=== PATIENT | male | born 1975 | race Caucasian/White ===

== ENCOUNTER → 2020-11-21 | Day surgery (SDC) | payer BC ==
[~2020-11-21] MED LIST: ALBU2.5V8 IH; BACL10TA PO; BUDE10.7 IH; ESCITALOPRAM OX10 MG PO; FLUT1BLS3 IH; IBUP800T19 PO; METH-559 PO
[2020-11-21 08:28] VITALS: BP 134/91
== END | disposition home or self-care (01) ==
LOC: SURG 08:20
PROVIDERS: ATTEND Anesthesiology
DX: M54.12 Radiculopathy, cervical region (principal); G89.29 Other chronic pain; M47.816 Spondylosis without myelopathy or radiculopathy, lumbar region; M50.30 Other cervical disc degeneration, unspecified cervical region; M51.36 Other intervertebral disc degeneration, lumbar region; M51.34 Other intervertebral disc degeneration, thoracic region; J45.909 Unspecified asthma, uncomplicated; M19.90 Unspecified osteoarthritis, unspecified site; Z98.890 Other specified postprocedural states; Z87.442 Personal history of urinary calculi; Z79.899 Other long term (current) drug therapy; Z88.8 Allergy status to other drugs, medicaments and biological substances
CPT/HCPCS: 99204; G0463

== ENCOUNTER 2021-09-11 08:18 | Emergency (ER) | payer BC ==
[~2021-09-11] VITALS: Ht 170.2 cm; Wt 80.0 kg
[2021-09-11 08:25] VITALS: BP 126/93
[2021-09-11] MEDS ORDERED: predniSONE 20 MG TABLET PO ONE (08:45)
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
--- NOTE | 2021-09-11 09:07 | RAD ---
Three-view lumbar spine radiographs 09/11/2021 CLINICAL HISTORY: Low back pain since yesterday after bending. AP and 2 lateral digital radiographs of lumbar spine were obtained. A spinal stimulator seen within t he superior left gluteal region. Leads extend along the posterior epidural space at T12-L1 level exte nding into the mid/lower thoracic spine. A reservoir which likely represents a pain pump, overlies th e right abdomen. Intrathecal catheter is seen extending into the spinal canal T12-L1 and 2 the thorac ic spine. The superior extent of the intrathecal catheter and spinal stimulator leads are not include d on this study. Minimal S-shaped curvature of the thoracolumbar spine is seen. No fracture or sublux ation lumbar vertebrae is noted. Degenerative changes are seen involving the lower thoracic and throu ghout the lumbar disc spaces consisting of vertebral endplate sclerosis and minimal to mild anterior vertebral body osteophyte formation. Degenerative changes are seen involving the facet joints of the lower lumbar spine. IMPRESSION: Degenerative changes are seen involving the thoracolumbar spine as discussed above. No ac brenda osseous abnormalities seen. Electronically signed by: Timothy Li MD (09/11/2021 9:04 AM) [id number]
[2021-09-11] MEDS ORDERED: PRED50TA PO (09:35)
[2021-09-11] MEDS ORDERED: DIAZ5TAB PO (09:35)
== END 2021-09-11 09:40 | disposition home or self-care (01) ==
LOC: ER 08:18
DX: M51.36 Other intervertebral disc degeneration, lumbar region (principal); Z88.5 Allergy status to narcotic agent
CPT/HCPCS: 72100; 99283; J7512